=== PATIENT | female | born 1955 | race Caucasian/White ===

== ENCOUNTER → 2017-02-16 | Outpatient (REF) ==
[~2017-02-16] MED LIST: ACIPHEX20 MG PO; ALDACTONE 25MG25 M1 PO; MECLIZINE25 MG PO; NO HOME MEDICATIONS; PRILOSEC 20MG20 MG PO; PRILOSEC20 MG PO
== END ==
LOC: ZLAB.WCH 10:55
DX: Z01.89 Encounter for other specified special examinations (principal)

== ENCOUNTER → 2017-03-05 | Outpatient (REF) | LOC: ZLAB.WCH 10:21 | DX: Z01.89 Encounter for other specified special examinations (principal) ==

== ENCOUNTER 2017-03-10 10:38 | Day surgery (SDC) | payer MEDICARE, BC ==
[~2017-03-10] VITALS: Ht 160 cm; Wt 110.8 kg
[~2017-03-10 10:38] MED LIST changes: -ALDACTONE 25MG25 M1 PO
[2017-03-10 12:08] VITALS: BP 150/80; PULSE 86; TEMP 97.9
[2017-03-10] MEDS ORDERED: ALDACTONE 25MG25 M1 PO (12:25)
== END 2017-03-10 13:39 | disposition home or self-care (01) ==
LOC: SDCO 10:38
DX: K80.20 Calculus of gallbladder without cholecystitis without obstruction (principal); Z53.09 Procedure and treatment not carried out because of other contraindication; G35 Multiple sclerosis; I10 Essential (primary) hypertension; Z87.01 Personal history of pneumonia (recurrent); Z79.899 Other long term (current) drug therapy
CPT/HCPCS: J1200; J7120

== ENCOUNTER → 2017-07-11 | Outpatient (REF) ==
[~2017-07-11] MED LIST changes: +ALDACTONE 25MG25 M1 PO
== END ==
LOC: WSOH 14:17
DX: Z11.1 Encounter for screening for respiratory tuberculosis (principal)

== ENCOUNTER → 2018-04-23 | Outpatient (REF) | LOC: ZLAB.WCH 17:52 | DX: Z01.89 Encounter for other specified special examinations (principal) ==

== ENCOUNTER 2018-05-27 09:02 | Emergency (ER) | payer MEDICARE, BC ==
[~2018-05-27] VITALS: Ht 162.6 cm; Wt 108.6 kg
[2018-05-27 09:06] VITALS: TEMP 97.7
[2018-05-27 09:35] LABS: BASO # 0.1 (0.0-0.2); BASO % 0.8 % (0.0-2.0); EOS # 0.3 (0.0-0.7); EOS % 3.4 % (0-4.0); GRAN # 4.8 (1.4-6.5); GRAN % 48.2 % (42.2-75.2); HEMATOCRIT 40.4 % (37.0-47.0); HEMOGLOBIN 13.3 g/dl (12.5-16.0); LYMPH # 4.4 (1.2-3.4); LYMPH % 43.3 % (20.0-51.0); MEAN CELL VOLUME 81 fl (80.0-100.0); MEAN CORPUSCULAR HEMOGLOBIN 27 pg (27.0-31.0); MEAN CORPUSCULAR HGB CONC 33 g/dl (33.0-37.0); MEAN PLATELET VOLUME 10.8 fl (7.4-10.4); MONO # 0.4 (0.1-0.6); MONO % 4.1 % (1.7-9.3); PLATELET COUNT 332 K/mm3 (130-400); RED BLOOD COUNT 5.01 M/mm3 (4.10-5.30); REDCELL DISTRIBUTION WIDTH-CV 15.1 % (11.5-14.5)
[2018-05-27 09:48] LABS: ALANINE AMINOTRANSFERASE 31 U/L (9-52); ALBUMIN 4.1 gm/dL (3.5-5.0); ALKALINE PHOSPHATASE 111 U/L (50-136); ANION GAP 11 mmol/L (7-16); AST,SGOT 24 U/L (15-37); BILIRUBIN,TOTAL 0.5 mg/dL (0.0-1.0); BLOOD UREA NITROGEN 13 mg/dL (7-17); C-REACTIVE PROTEIN 1.6 mg/dL (0.0-0.9); CALCIUM 9.4 mg/dL (8.4-10.2); CARBON DIOXIDE 26 mmol/L (22-30); CHLORIDE 101 mmol/L (98-107); CREATININE, serum 0.77 mg/dL (0.52-1.25); GLUCOSE 112 mg/dL (74-106); LIPASE 95 U/L (23-300); POTASSIUM 3.8 mmol/L (3.4-5.0); SODIUM 138 mmol/L (137-145); TOTAL PROTEIN 7.7 gm/dL (6.4-8.2)
[2018-05-27 10:20] LABS: TROPONIN-I < 0.012 ng/mL (0.000-0.034)
[2018-05-27 10:25] LABS: COLLECTION METHOD CLEAN CATCH
[2018-05-27 10:30] LABS: PH 6 (5-8); SQUAMOUS EPITHELIAL 0-2 /hpf; URINE APPEARANCE Clear; URINE BACTERIA Rare /hpf; URINE BILIRUBIN Negative (NEGATIVE); URINE BLOOD Negative (NEGATIVE); URINE COLOR Yellow; URINE GLUCOSE Negative (NEGATIVE); URINE KETONE Negative (NEGATIVE); URINE LEUKOCYTE ESTERASE Negative (NEGATIVE); URINE NITRATE Negative (NEGATIVE); URINE PROTEIN(semi-quant) Negative (NEGATIVE); URINE RBC None Seen /hpf; URINE UROBILINOGEN Negative (NEGATIVE)
[2018-05-27 10:57] VITALS: BP 155/66; PULSE 86
== END 2018-05-27 10:59 | disposition home or self-care (01) ==
LOC: COL.ER 09:02
PROVIDERS: Physician Assistant
DX: K29.70 Gastritis, unspecified, without bleeding (principal); I10 Essential (primary) hypertension; K21.9 Gastro-esophageal reflux disease without esophagitis; Z98.51 Tubal ligation status
CPT/HCPCS: C9113; J2405; J7030

== ENCOUNTER 2018-11-09 00:50 | Emergency (ER) | payer MEDICARE, BC ==
[~2018-11-09] VITALS: Ht 162.6 cm; Wt 106.4 kg
[2018-11-09 01:01] VITALS: TEMP 97.3
[2018-11-09] MEDS ORDERED: MACROBID 1100 MG/CAP PO (01:35)
[2018-11-09 02:09] VITALS: BP 180/80; PULSE 92
== END 2018-11-09 02:10 | disposition home or self-care (01) ==
LOC: COL.ER 00:50
DX: T36.4X5A Adverse effect of tetracyclines, initial encounter (principal)

== ENCOUNTER → 2019-01-10 | Outpatient (CLI) | payer MEDICARE, BC ==
[~2019-01-10] MED LIST changes: +MACROBID 1100 MG/CAP PO
== END ==
LOC: MC.RAD 07:52
DX: Z12.31 Encounter for screening mammogram for malignant neoplasm of breast (principal); N63.10 Unspecified lump in the right breast, unspecified quadrant

== ENCOUNTER → 2019-01-15 | Outpatient (CLI) | payer MEDICARE, BC | LOC: MC.RAD 13:44 | DX: N60.01 Solitary cyst of right breast (principal) ==